=== PATIENT | female | born 1950 | race African-American/Black ===

== ENCOUNTER 2018-01-20 00:27 | Emergency (ER) | payer MEDICARE, OTHER ==
[~2018-01-20] VITALS: Ht 162.6 cm; Wt 72.1 kg
[2018-01-20 02:31] VITALS: BP 158/86
--- NOTE | 2018-01-21 00:33 | Emergency Room Report ---
History of Present Illness General Chief Complaint: Lower Extremity Injury Source: Patient Present Illness HPI 67-year-old female presents ED for evaluation. Patient states approximately 3 weeks ago she sustained a injury to her left leg and there is a wound to her left leg. Currently awaiting wound care management per her PMD. States there is no change in the wound however there is a small swelling underneath the ulceration. Dull, 5 out of 10, nonradiating. Denies fevers or chills. Denies discharge. Denies chest pain or shortness of breath. No other aggravating relieving factors. Denies any other associated symptoms Allergies: Coded Allergies: No Known Allergies (Unverified , 01/20/18) Patient History Past Medical History: HTN Past Surgical History: none Pertinent Family History: none Social History: Denies: smoking, alcohol use, drug use Last Menstrual Period: NA Now: No Immunizations: UTD Reviewed Nursing Documentation: PMH: Agreed, PSxH: Agreed Nursing Documentation-PMH Hx Hypertension: Yes Review of Systems All Other Systems: negative except mentioned in HPI Physical Exam Vital Signs Date Time Temp Pulse Resp B/P (MAP) Pulse Ox O2 Delivery O2 Flow Rate FiO2 01/20/18 00:44 98.6 72 20 158/86 97 Room Air 98.6 Sp02 EP Interpretation: reviewed, normal General Appearance: no apparent distress, alert, GCS 15, non-toxic Head: normocephalic Eyes: bilateral eye normal inspection, bilateral eye PERRL ENT: normal ENT inspection Neck: normal inspection Respiratory: normal inspection Cardiovascular #1: normal inspection Gastrointestinal: normal inspection Rectal: deferred Genitourinary: no CVA tenderness Musculoskeletal: tender - LLE Neurologic: alert, oriented x3, responsive, motor strength/tone normal, sensory intact, speech normal Psychiatric: judgement/insight normal, memory normal, mood/affect normal, no suicidal/homicidal ideation Skin: other - 2cm ulceration noted to anterior L murphy. no active drainage. no erythema/induration. there is 2cm swelling distal to ulcer. nonerythematous. nonindurated Lymphatic: no adenopathy Medical Decision Making Diagnostic Impression: Primary Impression: Visit for wound check ER Course Hospital Course 67-year-old female presents for evaluation of wound to her left leg Clinical course Patient placed on stretcher. Physical exam reveals an elderly female in no acute distress. On exam there is approximately 2 cm ulceration noted to the anterior left murphy. Nonindurated. No discharge. No erythema. Just distal to the ulcer there is a small area of swelling. Minimally tender. Non- erythematous or indurated. Unlikely abscess. More likely small hematoma. There is no calf tenderness or swelling suggestive of DVT. Recommend warm compresses. Patient states that the ulcer to her left leg appears unchanged and is in fact improving. I see no reason for further intervention at this time. Recommend close follow-up with PMD for wound care management Diagnosis - visit for wound check Stable and discharged to home. Followup with PMD/wound management. Return to ED if any signs of infection develop Last Vital Signs Date Time Temp Pulse Resp B/P (MAP) Pulse Ox O2 Delivery O2 Flow Rate FiO2 01/20/18 02:31 98.6 20 158/86 97 Room Air 98.6 01/20/18 00:44 72 Status: improved Disposition: HOME, SELF-CARE Condition: Stable Referrals: NON PHYSICIAN (PCP) Patient Instructions: Wound Check RACHAEL HILL M.D. Jan 21, 2018 00:33
== END 2018-01-20 02:30 | disposition home or self-care (01) ==
LOC: EMR 01:08
DX: L97.829 Non-pressure chronic ulcer of other part of left lower leg with unspecified severity (principal); I10 Essential (primary) hypertension
CPT/HCPCS: 99281